=== PATIENT | male | born 1940 | race Hispanic/Latino ===

== ENCOUNTER 2021-07-22 12:32 | Emergency (ER) | payer MEDICARE ==
[~2021-07-22] VITALS: Ht 167.6 cm; Wt 72.1 kg
[2021-07-22 12:40] VITALS: BP 112/48
== END 2021-07-22 15:04 | disposition left against medical advice (07) ==
LOC: EDH 12:32
DX: R51.9 Headache, unspecified (principal); Z53.21 Procedure and treatment not carried out due to patient leaving prior to being seen by health care provider
CPT/HCPCS: 87635; 87804 ×2; C9803